=== PATIENT | male | born 1965 | race African-American/Black ===

== ENCOUNTER 2018-01-09 11:11 | Emergency (ER) | payer MEDICARE ==
[~2018-01-09] VITALS: Ht 165.1 cm; Wt 99.1 kg
[~2018-01-09 11:11] MED LIST: ABILIFY15 MG PO; BAYER CHEWABLE81 MG PO; CLARINEX5 MG PO; CLARITIN 10 MG10 MG PO; DESERYL100 MG PO; EFFIENT10 MG PO; NORCO 10/325 TA1 TA1 PO; PROAIR HFA8.5 GM INH; TOPROL XL25 MG PO; VALIUM5 MG PO; VISTARIL25 MG PO; ZOLOFT100 MG PO
[2018-01-09 11:33] VITALS: Ht 165.1 cm; Wt 99.1 kg
[2018-01-09] MEDS ORDERED: SEROQUEL100 MG PO (11:35)
[2018-01-09] MEDS ORDERED: VIBRAMYCIN 100100 MG PO (12:41)
[2018-01-09 12:59] VITALS: BP 112/55
== END 2018-01-09 13:03 | disposition home or self-care (01) ==
LOC: D.ER 11:11
DX: L03.213 Periorbital cellulitis (principal); F17.200 Nicotine dependence, unspecified, uncomplicated

== ENCOUNTER 2018-02-23 05:34 | Observation (INO) | payer MEDICARE ==
[~2018-02-23] VITALS: Ht 165.1 cm; Wt 96.5 kg
--- NOTE | ~2018-02-23 | DS ---
PATIENT:ROCIO LOZANO :63 MEDICAL RECORD: [id number] DISCHARGE SUMMARY ADMISSION DATE: 02/23/18 DISCHARGE DATE: DATE OF ADMISSION: 02/23/2018 DISCHARGE DATE: 02/24/2018 ADMISSION DIAGNOSES: Chest pain; depression, chronic. DISCHARGE DIAGNOSES: Chest pain, atypical; chronic depression. HOSPITAL COURSE: The patient had an uneventful hospital course, presented to the Emergency Room with atypical chest pain, has underlying cardiac history, had an extensive cardiac workup with [facility] 2 weeks ago. Cardiology was consulted. Pacemaker interrogated. Case reviewed, cleared for discharge by cardiology. The patient is ambulating independently. He is walking all over the hospital. He is anxious to go home. DISPOSITION: The patient is discharged home in significantly stable and improved condition. PHYSICAL EXAMINATION: VITAL SIGNS: On discharge, temperature 98.1, blood pressure is 148/75, heart rate 80, respirations 18, O2 sats 95% room air. GENERAL: Alert, oriented, no acute distress. HEART: Regular rate and rhythm. LUNGS: Clear. ABDOMEN: Soft, nontender. Bowel sounds positive. EXTREMITIES: Present times 4. NEUROLOGIC: Intact. The patient answers questions appropriately. DISCHARGE INSTRUCTIONS: The patient will follow up with Dr. Go next week. Will follow up with Chet Montana for his depression as scheduled. DISCHARGE MEDICATIONS: Per med rec. See chart for further details. TRANSINT:[id number] Voice Confirmation ID: [id number] DOCUMENT ID: [id number] MELITA CA DO at 1439 CC: [id number] DICTATION DATE: 02/24/18 1349 BURGLAR ALARM SUPERINTENDENT: 02/24/18 1403 ADM IN [place] [id number] [place] [id number]
--- NOTE | ~2018-02-23 | CN ---
PATIENT NAME:ROCIO MEDEROS MEDICAL RECORD: [id number] : 63 LOCATION:[facility].2124 ADMIT DATE: 02/23/18 ACCOUNT: [id number] CONSULTING PHYSICIAN: NIKOLAS CELIS MD REFERRING PHYSICIAN: LEONILA DAY DO DATE OF CONSULTATION: 02/24/2018 PSYCHIATRIC CONSULTATION HISTORY OF PRESENT ILLNESS: Mr. Mederos was consulted for depression. He is in the hospital because of chest pain. I went to his room to see him and there was no one in his room. I spoke with his nurse. He is not off the floor for any diagnostic procedure. The nurse said that he does walk around and offered to help me look for the patient once he finished doing what he was doing. I made one nenana around the nurses' station and did not see anyone who was a black male about 53 years old and so I left. I will return and try to see him again in the future, probably tomorrow. Please call if there is some kind of acute need that this patient requires from psychiatrist. TRANSINT:[id number] Voice Confirmation ID: [id number] DOCUMENT ID: [id number] NIKOLAS CELIS MD at 1045 CC: [id number] DICTATION DATE: 02/24/18 1312 SECURITY DELIVERY SPECIALIST: 02/24/18 1331 DIS IN 02/24/18 [place] [address] [place] [address]
[~2018-02-23 05:34] MED LIST changes: +SEROQUEL100 MG PO; +VIBRAMYCIN 100100 MG PO
[2018-02-23 06:32] LABS: ALBUMIN 3.1 g/dL (3.4-5.0); ALKALINE PHOSPHATASE 90 U/L (46-116); ALT (SGPT) 26 U/L (10-68); BILIRUBIN - TOTAL 0.25 mg/dL (0.2-1.3); CALC OSMOLALITY 276 mosm/kg (275-300); CALCIUM 8.6 mg/dL (8.5-10.1); CARBON DIOXIDE 26.1 mmol/L (21.0-32.0); CHLORIDE - SERUM 105 mmol/L (98-107); CREATININE - SERUM 1.2 mg/dL (0.6-1.3); GLUCOSE 130 mg/dL (74-106); POTASSIUM - SERUM 3.6 mmol/L (3.5-5.1); PROTEIN - SERUM 6.9 g/dL (6.4-8.2); SODIUM 138 mmol/L (136-145); UREA NITROGEN 9 mg/dL (7-18); eGFR NON AFRICAN AMERICAN 67 mL/min (90-120)
[2018-02-23 06:43] LABS: INR 0.99 (0.85-1.17); PROTIME 12.7 SECONDS (11.6-15.0)
[2018-02-23 06:45] LABS: D-DIMER-QUANTITATIVE 0.38 ug/mLFEU (0.20-0.54)
[2018-02-23 06:46] LABS: CKMB 1.9 U/L (0.0-3.6); CREATINE KINASE 310 UL (21-232)
[2018-02-23 06:47] LABS: TROPONIN-I < 0.017 ng/mL (0.000-0.060)
[2018-02-23 06:48] LABS: BASOPHILS 0.2 % (0-2); EOSINOPHILS 4.5 % (0-7); HEMOGLOBIN 14.9 g/dL (13.5-17.5); IMMATURE GRANULOCYTES 0.2 % (0-5); LYMPHOCYTES 28.5 % (15-50); MCH 30.3 pg (26.0-34.0); MCHC 34.7 g/dL (31.0-37.0); MCV 87.4 fL (80.0-100.0); MEAN PLATELET VOLUME 9.4 fL (7.4-10.4); MONOCYTES 7.5 % (2-11); NEUTROPHILS 59.1 % (40-80); PLATELET COUNT 287 10x3/uL (130-400); RBC 4.92 10x6/uL (4.20-6.10); RDW 14.3 % (11.5-14.5); WBC 8.5 10x3/uL (4.8-10.8)
[2018-02-23 07:00] VITALS: BP 113/66
[2018-02-23 07:15] VITALS: BP 116/67
[2018-02-23 08:08] VITALS: BP 104/59; BMI 35.5
[2018-02-23 08:13] VITALS: BP 104/59
[2018-02-23 14:10] LABS: CKMB 1.5 U/L (0.0-3.6); CREATINE KINASE 263 UL (21-232); TROPONIN-I < 0.017 ng/mL (0.000-0.060)
[2018-02-23 14:25] VITALS: Ht 165.1 cm; Wt 96.5 kg
[2018-02-23 19:14] LABS: CKMB 1.3 U/L (0.0-3.6); CREATINE KINASE 238 UL (21-232); TROPONIN-I < 0.017 ng/mL (0.000-0.060)
[2018-02-23 21:56] VITALS: BP 126/77
[2018-02-24 00:45] VITALS: BP 127/67
[2018-02-24 04:16] VITALS: BP 111/74
[2018-02-24 07:47] VITALS: BP 148/75
== END 2018-02-24 14:45 | disposition home or self-care (01) ==
LOC: D.ER 05:34 → D.M2 06:59 → D.EDHOLD 06:59 → OBSVTIME 06:59 → D.M2 07:10
PROVIDERS: Family Medicine
DX: R07.9 Chest pain, unspecified (principal); F32.9 Major depressive disorder, single episode, unspecified; Z95.0 Presence of cardiac pacemaker

== ENCOUNTER 2018-08-21 22:26 | Emergency (ER) | payer MEDICARE, MEDICAID ==
[~2018-08-21] VITALS: Ht 165.1 cm; Wt 91.8 kg
[2018-08-21 22:40] VITALS: Ht 165.1 cm; Wt 91.8 kg
[2018-08-21 23:19] LABS: BASOPHILS 0.1 % (0-2); EOSINOPHILS 2.5 % (0-7); HEMATOCRIT 42.6 % (42.0-54.0); HEMOGLOBIN 14.9 g/dL (13.5-17.5); IMMATURE GRANULOCYTES 0.3 % (0-5); LYMPHOCYTES 34.1 % (15-50); MCH 30.8 pg (26.0-34.0); MONOCYTES 9.2 % (2-11); NEUTROPHILS 53.8 % (40-80); PLATELET COUNT 274 10x3/uL (130-400); RBC 4.84 10x6/uL (4.20-6.10); RDW 14.4 % (11.5-14.5); WBC 7.9 10x3/uL (4.8-10.8)
[2018-08-21 23:36] LABS: ALBUMIN 2.7 g/dL (3.4-5.0); ALKALINE PHOSPHATASE 97 U/L (46-116); ALT (SGPT) 18 U/L (10-68); APTT 32.6 SECONDS (22.8-39.4); BILIRUBIN - TOTAL 0.27 mg/dL (0.2-1.3); CALC OSMOLALITY 283 mosm/kg (275-300); CALCIUM 8.6 mg/dL (8.5-10.1); CARBON DIOXIDE 24.6 mmol/L (21.0-32.0); CHLORIDE - SERUM 105 mmol/L (98-107); CREATININE - SERUM 1.1 mg/dL (0.6-1.3); GLUCOSE 90 mg/dL (74-106); INR 1.04 (0.85-1.17); POTASSIUM - SERUM 3.4 mmol/L (3.5-5.1); PROTIME 13.1 SECONDS (11.6-15.0); SODIUM 143 mmol/L (136-145); UREA NITROGEN 11 mg/dL (7-18); eGFR NON AFRICAN AMERICAN 74 mL/min (90-120)
[2018-08-21 23:37] LABS: D-DIMER-QUANTITATIVE 0.46 ug/mLFEU (0.20-0.54)
[2018-08-21 23:46] LABS: CKMB 0.9 U/L (0.0-3.6); CREATINE KINASE 110 UL (21-232)
[2018-08-21 23:52] LABS: TROPONIN-I < 0.017 ng/mL (0.000-0.060)
[2018-08-21 23:54] LABS: APPEARANCE CLEAR (CLEAR); BILIRUBIN NEGATIVE (NEGATIVE); COLOR YELLOW (YELLOW); GLUCOSE NEGATIVE (NEGATIVE); KETONE NEGATIVE (NEGATIVE); NITRITE NEGATIVE (NEGATIVE); PROTEIN NEGATIVE (NEGATIVE); UDS - AMPHET NEGATIVE QUAL (NEGATIVE); UDS - BARB NEGATIVE QUAL (NEGATIVE); UDS - BENZO POSITIVE QUAL (NEGATIVE); UDS - COCAINE POSITIVE QUAL (NEGATIVE); UDS - OPIATE NEGATIVE QUAL (NEGATIVE); UDS - PCP NEGATIVE QUAL (NEGATIVE); UDS - THC NEGATIVE QUAL (NEGATIVE); UROBILINOGEN NORMAL (NORMAL)
[2018-08-21 23:55] LABS: BACTERIA FEW /hpf (NONE SEEN); EPITHELIAL CELLS 0-5 /hpf (0-5); RED CELLS - URINE 0-5 /hpf (0-5); WHITE CELLS - URINE 0-5 /hpf (0-5)
[2018-08-22 02:20] LABS: CKMB 1.2 U/L (0.0-3.6); CREATINE KINASE 143 UL (21-232); TROPONIN-I < 0.017 ng/mL (0.000-0.060)
[2018-08-22 03:07] VITALS: BP 136/112
== END 2018-08-22 03:07 | disposition home or self-care (01) ==
LOC: D.ER 22:26
PROVIDERS: Family Medicine
DX: R07.9 Chest pain, unspecified (principal); F41.9 Anxiety disorder, unspecified; F19.10 Other psychoactive substance abuse, uncomplicated

== ENCOUNTER 2018-09-06 11:30 | Emergency (ER) | payer MEDICARE, MEDICAID ==
[~2018-09-06] VITALS: Ht 165.1 cm; Wt 86.4 kg
[2018-09-06 12:33] VITALS: Ht 165.1 cm; Wt 86.4 kg
[2018-09-06] MEDS ORDERED: KEFLEX500 MG PO (17:14)
[2018-09-06] MEDS ORDERED: TALWIN NX1 TAB PO (17:14)
[2018-09-06 17:42] VITALS: BP 125/78
== END 2018-09-06 17:43 | disposition home or self-care (01) ==
LOC: D.ER 11:30
DX: S61.411A Laceration without foreign body of right hand, initial encounter (principal); W25.XXXA Contact with sharp glass, initial encounter; Y93.89 Activity, other specified; Y92.019 Unspecified place in single-family (private) house as the place of occurrence of the external cause

== ENCOUNTER 2018-09-14 11:32 | Emergency (ER) | payer MEDICARE, MEDICAID ==
[~2018-09-14] VITALS: Ht 165.1 cm; Wt 90.0 kg
[~2018-09-14 11:32] MED LIST changes: +KEFLEX500 MG PO; +TALWIN NX1 TAB PO
[2018-09-14 12:09] VITALS: Ht 165.1 cm; Wt 90.0 kg
[2018-09-14 17:55] VITALS: BP 115/82
== END 2018-09-14 17:55 | disposition home or self-care (01) ==
LOC: D.ER 11:32
DX: S61.411D Laceration without foreign body of right hand, subsequent encounter (principal); X58.XXXD Exposure to other specified factors, subsequent encounter; Z48.02 Encounter for removal of sutures

== ENCOUNTER 2018-09-15 17:39 | Emergency (ER) | payer MEDICARE, MEDICAID ==
[~2018-09-15] VITALS: Ht 165.1 cm; Wt 88.7 kg
[2018-09-15 18:09] VITALS: BP 115/68; Ht 165.1 cm; Wt 88.7 kg
== END 2018-09-15 19:08 | disposition home or self-care (01) ==
LOC: D.ER 17:39
DX: S61.411D Laceration without foreign body of right hand, subsequent encounter (principal); X58.XXXD Exposure to other specified factors, subsequent encounter; Z48.02 Encounter for removal of sutures

== ENCOUNTER 2018-09-23 17:41 | Emergency (ER) | payer MEDICARE, MEDICAID ==
[~2018-09-23] VITALS: Ht 165.1 cm; Wt 85.5 kg
[~2018-09-23 17:41] MED LIST changes: -AMOXICILLIN500 M1 PO
[2018-09-23 17:44] VITALS: Ht 165.1 cm; Wt 85.5 kg
[2018-09-23] MEDS ORDERED: AMOXICILLIN500 M1 PO (18:21)
[2018-09-23 18:56] VITALS: BP 122/62
== END 2018-09-23 18:57 | disposition home or self-care (01) ==
LOC: D.ER 17:41
DX: L03.011 Cellulitis of right finger (principal)

== ENCOUNTER → 2018-09-23 | Emergency (ER) | payer MEDICARE, MEDICAID ==
[~2018-09-23] MED LIST changes: +AMOXICILLIN500 M1 PO
[2018-09-23 17:44] VITALS: BMI 31.3
== END | disposition home or self-care (01) ==
LOC: D.ER 19:02
DX: L03.113 Cellulitis of right upper limb (principal)

== ENCOUNTER 2018-10-13 12:31 | Emergency (ER) | payer MEDICARE, MEDICAID ==
[~2018-10-13] VITALS: Ht 165.1 cm; Wt 81.8 kg
[~2018-10-13 12:31] MED LIST changes: +AMOXICILLIN500 M1 PO
[2018-10-13 12:37] VITALS: Ht 165.1 cm; Wt 81.8 kg
[2018-10-13 13:05] LABS: BASOPHILS 0.1 % (0-2); EOSINOPHILS 0.2 % (0-7); HEMATOCRIT 47.3 % (42.0-54.0); IMMATURE GRANULOCYTES 0.4 % (0-5); LYMPHOCYTES 7.7 % (15-50); MCH 32.9 pg (26.0-34.0); MCHC 35.9 g/dL (31.0-37.0); MCV 91.7 fL (80.0-100.0); MEAN PLATELET VOLUME 9.4 fL (7.4-10.4); MONOCYTES 7.5 % (2-11); NEUTROPHILS 84.1 % (40-80); PLATELET COUNT 239 10x3/uL (130-400); RBC 5.16 10x6/uL (4.20-6.10); RDW 16.1 % (11.5-14.5)
[2018-10-13] MEDS ORDERED: TRAZODONE HCL150 MG PO (13:14)
[2018-10-13] MEDS ORDERED: HALDOL5 MG PO (13:14)
[2018-10-13 13:17] LABS: APPEARANCE CLEAR (CLEAR); COLOR STRAW (YELLOW); GLUCOSE NEGATIVE (NEGATIVE); KETONE LARGE mg/dL (NEGATIVE); NITRITE NEGATIVE (NEGATIVE); PROTEIN NEGATIVE (NEGATIVE)
[2018-10-13 13:18] LABS: BILIRUBIN NEGATIVE (NEGATIVE); EPITHELIAL CELLS 0-5 /hpf (0-5); RED CELLS - URINE 0-5 /hpf (0-5); UROBILINOGEN NORMAL (NORMAL); WHITE CELLS - URINE 0-5 /hpf (0-5)
[2018-10-13 13:19] LABS: ALBUMIN 3.3 g/dL (3.4-5.0); BILIRUBIN - TOTAL 0.83 mg/dL (0.2-1.3); CALCIUM 9.1 mg/dL (8.5-10.1); CARBON DIOXIDE 25.8 mmol/L (21.0-32.0); CREATININE - SERUM 1.1 mg/dL (0.6-1.3); POTASSIUM - SERUM 3.8 mmol/L (3.5-5.1); PROTEIN - SERUM 7.7 g/dL (6.4-8.2)
[2018-10-13 13:21] LABS: MAGNESIUM - SERUM 2.1 mg/dL (1.8-2.4)
[2018-10-13 13:32] LABS: UDS - AMPHET NEGATIVE QUAL (NEGATIVE); UDS - BARB NEGATIVE QUAL (NEGATIVE); UDS - BENZO NEGATIVE QUAL (NEGATIVE); UDS - COCAINE POSITIVE QUAL (NEGATIVE); UDS - OPIATE NEGATIVE QUAL (NEGATIVE); UDS - PCP NEGATIVE QUAL (NEGATIVE); UDS - THC NEGATIVE QUAL (NEGATIVE)
[2018-10-13 17:52] VITALS: BP 128/72
== END 2018-10-13 18:46 ==
LOC: D.ER 12:31
PROVIDERS: Family Medicine
DX: R45.850 Homicidal ideations (principal)

== ENCOUNTER 2018-10-18 14:21 | Emergency (ER) | payer MEDICARE, MEDICAID ==
[~2018-10-18] VITALS: Ht 165.1 cm; Wt 81.8 kg
[~2018-10-18 14:21] MED LIST changes: +HALDOL5 MG PO; +TRAZODONE HCL150 MG PO
[2018-10-18 14:50] VITALS: Ht 165.1 cm; Wt 81.8 kg
[2018-10-18 15:47] LABS: BASOPHILS 0.2 % (0-2); EOSINOPHILS 0.8 % (0-7); HEMATOCRIT 44.1 % (42.0-54.0); HEMOGLOBIN 15.7 g/dL (13.5-17.5); IMMATURE GRANULOCYTES 0.4 % (0-5); MCH 32.4 pg (26.0-34.0); MCHC 35.6 g/dL (31.0-37.0); MCV 90.9 fL (80.0-100.0); MEAN PLATELET VOLUME 9.6 fL (7.4-10.4); NEUTROPHILS 77.6 % (40-80); RBC 4.85 10x6/uL (4.20-6.10); RDW 15.4 % (11.5-14.5); WBC 16.4 10x3/uL (4.8-10.8)
[2018-10-18 15:52] LABS: PLATELET COUNT 322 10x3/uL (130-400)
[2018-10-18 16:03] LABS: INR 1.12 (0.85-1.17); PROTIME 13.9 SECONDS (11.6-15.0)
[2018-10-18 16:04] LABS: ALBUMIN 2.6 g/dL (3.4-5.0); ALKALINE PHOSPHATASE 82 U/L (46-116); ALT (SGPT) 23 U/L (10-68); BILIRUBIN - TOTAL 0.69 mg/dL (0.2-1.3); CALC OSMOLALITY 271 mosm/kg (275-300); CALCIUM 9.4 mg/dL (8.5-10.1); CARBON DIOXIDE 24.5 mmol/L (21.0-32.0); CHLORIDE - SERUM 100 mmol/L (98-107); CREATININE - SERUM 0.9 mg/dL (0.6-1.3); GLUCOSE 109 mg/dL (74-106); POTASSIUM - SERUM 4.1 mmol/L (3.5-5.1); PROTEIN - SERUM 8.2 g/dL (6.4-8.2); SODIUM 136 mmol/L (136-145); UREA NITROGEN 10 mg/dL (7-18); eGFR NON AFRICAN AMERICAN > 90 mL/min (90-120)
[2018-10-18 16:15] LABS: CKMB 0.5 U/L (0.0-3.6); CREATINE KINASE 67 UL (21-232); MAGNESIUM - SERUM 2.3 mg/dL (1.8-2.4)
[2018-10-18 16:18] LABS: TROPONIN-I < 0.017 ng/mL (0.000-0.060)
[2018-10-18] MEDS ORDERED: VIBRAMYCIN 100100 MG PO (16:49)
[2018-10-18] MEDS ORDERED: ALBUTEROL SULF8.5 GM INH (16:49)
[2018-10-18 17:24] VITALS: BP 145/91
[2018-10-20 13:50] VITALS: Ht 165.1 cm; Wt 81.8 kg
== END 2018-10-18 17:24 | disposition home or self-care (01) ==
LOC: D.ER
PROVIDERS: Emergency Medicine
DX: J40 Bronchitis, not specified as acute or chronic (principal); R07.81 Pleurodynia; I10 Essential (primary) hypertension; F17.200 Nicotine dependence, unspecified, uncomplicated

== ENCOUNTER 2018-10-19 00:42 | Inpatient (IN) | payer MEDICARE, MEDICAID ==
[~2018-10-19] VITALS: Ht 165.1 cm; Wt 77.1 kg
[~2018-10-19 00:42] MED LIST changes: +ALBUTEROL SULF8.5 GM INH
[2018-10-19 02:48] LABS: BASOPHILS 0.2 % (0-2); EOSINOPHILS 1.5 % (0-7); HEMATOCRIT 43.3 % (42.0-54.0); HEMOGLOBIN 15.1 g/dL (13.5-17.5); IMMATURE GRANULOCYTES 0.4 % (0-5); MCH 31.7 pg (26.0-34.0); MCHC 34.9 g/dL (31.0-37.0); MCV 90.8 fL (80.0-100.0); MEAN PLATELET VOLUME 9.3 fL (7.4-10.4); MONOCYTES 12.8 % (2-11); NEUTROPHILS 72.1 % (40-80); PLATELET COUNT 314 10x3/uL (130-400); RBC 4.77 10x6/uL (4.20-6.10); WBC 15.9 10x3/uL (4.8-10.8)
[2018-10-19 03:08] LABS: CALC OSMOLALITY 275 mosm/kg (275-300); CARBON DIOXIDE 25.4 mmol/L (21.0-32.0); CHLORIDE - SERUM 102 mmol/L (98-107); GLUCOSE 114 mg/dL (74-106); POTASSIUM - SERUM 4.1 mmol/L (3.5-5.1); SODIUM 138 mmol/L (136-145); UREA NITROGEN 11 mg/dL (7-18); eGFR NON AFRICAN AMERICAN 83 mL/min (90-120)
[2018-10-19 05:30] VITALS: BP 147/78
--- NOTE | 2018-10-19 07:30 | NUR ---
REPORT RECEIVED. WILL CONTINUE WITH POC. PT CURRENTLY LYING SEMI FOWLERS. CALL LIGHT W/I REACH. PT IS AAO AND UP AD REA. RR EVEN AND UNLABORED ON RA. L.WRIST PIV IS SALINE LOCKED. PT DENIES ANY NEEDS AT THIS TIME. WILL CTM. NO S/S OF DISTRESS NOTED.
[2018-10-19 07:58] VITALS: BP 147/78; BMI 28.3
[2018-10-19 09:10] VITALS: BP 111/78
[2018-10-19 13:24] VITALS: BP 157/84
--- NOTE | 2018-10-19 17:58 | NUR ---
I have reviewed this patient and I concur with the Shift Assessment completed by the Licensed Practical Nurse today this shift.
--- NOTE | 2018-10-19 19:25 | NUR ---
RECEIVED REPORT, WILL ASSUME CARE OF PT, PT IS SLEEPING, BED IS LOW, SRX2, CALL LIGHT IN REACH, WILL CONTINUE PLAN OF CARE
[2018-10-19 20:00] VITALS: BP 109/76
--- NOTE | 2018-10-19 20:37 | NUR ---
WENT TO GIVE PM MEDS, PT IS OUT OF ROOM
--- NOTE | 2018-10-19 20:50 | NUR ---
PT BACK IN ROOM, WAS WALKING IN [place]
[2018-10-20] VITALS: BP 112/73
[2018-10-20 05:53] LABS: BASOPHILS 0.1 % (0-2); EOSINOPHILS 0 % (0-7); HEMATOCRIT 41.9 % (42.0-54.0); HEMOGLOBIN 14.5 g/dL (13.5-17.5); IMMATURE GRANULOCYTES 0.3 % (0-5); LYMPHOCYTES 7.5 % (15-50); MCH 31.6 pg (26.0-34.0); MCHC 34.6 g/dL (31.0-37.0); MCV 91.3 fL (80.0-100.0); MONOCYTES 4.8 % (2-11); NEUTROPHILS 87.3 % (40-80); RBC 4.59 10x6/uL (4.20-6.10); RDW 15.5 % (11.5-14.5); WBC 14.9 10x3/uL (4.8-10.8)
[2018-10-20 05:55] LABS: PLATELET COUNT 386 10x3/uL (130-400)
[2018-10-20 06:04] LABS: ALBUMIN 2.3 g/dL (3.4-5.0); ALKALINE PHOSPHATASE 80 U/L (46-116); ALT (SGPT) 20 U/L (10-68); BILIRUBIN - TOTAL 0.24 mg/dL (0.2-1.3); CALC OSMOLALITY 280 mosm/kg (275-300); CALCIUM 9.3 mg/dL (8.5-10.1); CARBON DIOXIDE 24.4 mmol/L (21.0-32.0); CHLORIDE - SERUM 102 mmol/L (98-107); GLUCOSE 145 mg/dL (74-106); POTASSIUM - SERUM 3.9 mmol/L (3.5-5.1); PROTEIN - SERUM 7.9 g/dL (6.4-8.2); SODIUM 139 mmol/L (136-145); UREA NITROGEN 13 mg/dL (7-18); eGFR NON AFRICAN AMERICAN 83 mL/min (90-120)
[2018-10-20 06:22] VITALS: BP 116/70
--- NOTE | 2018-10-20 07:00 | NUR ---
RECEIVED REPORT. ASSUMED CARE OF PATIENT. NO DISTRESS. IV INFUSING AT KVO. CALL LIGHT WITHIN REACH.
[2018-10-20 09:08] VITALS: BP 109/81
--- NOTE | 2018-10-20 10:48 | NUR ---
MARYAN SCHNEIDER MADE AWARE THAT IS AWARE OF CONSULT AND CAN NOT SEE THE PATIENT AND STATES THE PATIENT NEEDS TO BE SEEN BY AN ENT.
[2018-10-20 11:31] VITALS: BP 131/74
[2018-10-20 13:50] VITALS: Ht 165.1 cm; Wt 77.1 kg
--- NOTE | 2018-10-20 14:02 | NUR ---
RECIEVED CALL FROM CHAD FROM [facility]. THEY HAVE ACCEPTED PATIENT SINCE WE DO NOT HAVE ENT SERVICE. RECEIVED PAPERWORK FROM CHAD AND TOOK IT TO JENNIE FOR TO SIGN.
--- NOTE | 2018-10-20 15:19 | NUR ---
RECEIVED CALL FROM [facility], SPOKE WITH ISMA, SHE STATES THAT PATIENT CANNOT BE TRANSFERRED UNTIL HE HAS A PSYCH SCREENING TO MAKE SURE THAT HE IS SAFE TO BE AT [facility]. ISMA ALSO IS REQUESTING THE RADIOLOGY SEND THE REPORT THROUGH THE [employer] SO THE PHYSICIAN CAN REVIEW THE TONSILAR ABSCESS WHILE WAITING ON THE PSYCH SCREENING. MARYAN SCHNEIDER CALLED AND MAKE AWARE OF ISSUES WITH TRANSFERRING TO [facility] NOW.
--- NOTE | 2018-10-20 18:14 | NUR ---
AMBULATING IN ROOM. NO DISTRESS. PATIENT OFF AND ON UNIT MOST ALL OF THIS SHIFT. AWAITING PSYCH SCREENING FOR TRANSFER TO [facility]. WILL BE THE RECEIVING ENT. PER CHAD AT [facility], SAID THE IMAGING WAS POOR SO THEY WILL WAIT AND EVALUATE PATIENT WHEN HE GETS THERE.
[2018-10-20 20:00] VITALS: BP 129/88
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
--- NOTE | 2018-10-20 22:00 | NUR ---
WENT TO GIVE PM MEDS, PT IS OFF THE FLOOR
[2018-10-21] VITALS: BP 130/79
--- NOTE | 2018-10-21 03:01 | NUR ---
I have reviewed this patient and I concur with the Shift Assessment completed by the Licensed Practical Nurse today this shift.
[2018-10-21 05:01] LABS: BASOPHILS 0 % (0-2); EOSINOPHILS 0 % (0-7); IMMATURE GRANULOCYTES 0.3 % (0-5); LYMPHOCYTES 10.9 % (15-50); MCH 32.3 pg (26.0-34.0); MCV 92.2 fL (80.0-100.0); MEAN PLATELET VOLUME 9.6 fL (7.4-10.4); MONOCYTES 6.4 % (2-11); NEUTROPHILS 82.4 % (40-80); PLATELET COUNT 397 10x3/uL (130-400); RBC 4.34 10x6/uL (4.20-6.10); RDW 15.4 % (11.5-14.5); WBC 14.6 10x3/uL (4.8-10.8)
[2018-10-21 05:12] LABS: ALBUMIN 2.2 g/dL (3.4-5.0); ALKALINE PHOSPHATASE 69 U/L (46-116); ALT (SGPT) 28 U/L (10-68); BILIRUBIN - TOTAL 0.16 mg/dL (0.2-1.3); CALC OSMOLALITY 284 mosm/kg (275-300); CARBON DIOXIDE 27.3 mmol/L (21.0-32.0); CHLORIDE - SERUM 105 mmol/L (98-107); CREATININE - SERUM 0.9 mg/dL (0.6-1.3); GLUCOSE 128 mg/dL (74-106); POTASSIUM - SERUM 4.4 mmol/L (3.5-5.1); PROTEIN - SERUM 7.2 g/dL (6.4-8.2); SODIUM 141 mmol/L (136-145); UREA NITROGEN 17 mg/dL (7-18); eGFR NON AFRICAN AMERICAN > 90 mL/min (90-120)
--- NOTE | 2018-10-21 07:42 | NUR ---
ROUNDING DONE WITH PATIENT UP IN ROOM WITH HIS IV DISCONNECTED AND INFUSING TO BED NEAR HIS CELL PHONE. PATIENT STATES HE FORGOT TO "TURN IT OFF". ON EP, K+ 4.4. WILL TRY AND MONITOR PATIENT HE IS NOT IN THE ROOM MOST OF THE ITIEM.
--- NOTE | 2018-10-21 08:13 | NUR ---
PATIENT IS OUT OF ROOM AGAIN.
[2018-10-21 08:32] VITALS: BP 138/72
--- NOTE | 2018-10-21 11:43 | NUR ---
PATIENT TO ASK IF HE CAN HAVE A SANDWICH, I TOLD HIM HE IS ON CLEAR LIQUIDS. HE STATES THAT HE IS GOING DOWNSTAIRS. I TOLD HIM TO STAY ON CLEAR LIQUIDS.
--- NOTE | 2018-10-21 12:00 | NUR ---
LEO WITH [facility] TO CALL AND INQUIRE ON PATIENT. I TOLD HER THAT DR VERGARA WAS IN THE ROOM TO SEE THE PATIENT BUT I HAVE NO NOTES YET. SHE ASKED THAT I CALL HER WHEN I FIND OUT.
--- NOTE | 2018-10-21 14:32 | NUR ---
STILL NO NOTED FROM [facility] DOCTOR SO I AM UNABLE TO CALL LEO AT [facility]. WILL CONTINUE TO LOOK FOR THEM.
--- NOTE | 2018-10-21 14:37 | NUR ---
I CALLED AND SPOKE WITH JENNIE KIM APN TO SEE ABOUT INCREASING HIS DIET. NEW ORDERS.
--- NOTE | 2018-10-21 14:42 | NUR ---
I TOOK A VANILLA AND CHOCOLATE PUDDING INTO PATIENT AND EXPLAINED THAT HE STILL COULD NOT HAVE A SANDWICH BUT I CAN GIVE HIM PUDDINGS AND SHERBERT NOW. HE STATES THAT HE HAS BEEN EATING THAT FOR THE PAST SEVERAL DAYS. I TRIED TO EXPLAIN TO THE PATIENT THAT HE HAS BEEN ON CLEAR LIQUIDS AND HE IS STARTING TO GET AGGITATED ABOUT IT. AGAIN HE TELLS ME THAT HE HAS BEEN ON A FULL LIQUID DIET, HE HAS BEEN ON CLEAR. HE STATES THAT HE IS "GOING TO MAKE SOME PHONE CALLS" AND GET A BETTER DIET AND GET SOME ANSWERS. I LEFT THE ROOM.
--- NOTE | 2018-10-21 15:08 | NUR ---
MARISABEL, AD TAKER TO CALL AND LET ME KNOW THAT PATIENT CALLED HER. I TOLD HER THAT PATIENT STATED HE WOULD CALL HER EVEN THOUGH I ASKED HIM IF I COULD HAVE HER COME UP.
--- NOTE | 2018-10-21 15:34 | NUR ---
LION TO CALL FROM TRANSFER CENTER, I TOLD HIM THAT I STILL HAD NO NOTED FROM [facility] DOCTOR.
--- NOTE | 2018-10-21 16:35 | NUR ---
DR WAKEFIELD HERE TO MAKE ROUNDS. NEW ORDERS RECEIVED FOR DIET.
--- NOTE | 2018-10-21 18:34 | NUR ---
LION FROM TRANSFER CENTER TO CALL AND INQUIRE ON PATIENT. THE NOTE FROM [facility] DOCTOR JUST CAME IN AND READ TO HIM. LION ASKED THAT WE FAX HIM THIS AND HE WILL LET [facility] KNOW OF THIS. AWAITING TO HEAR FINAL FOR DISCHARGE TO [facility] PER AMBULANCE.
--- NOTE | 2018-10-21 18:52 | NUR ---
PT REFUSED SMOKING QUITLINE.
--- NOTE | 2018-10-21 19:21 | NUR ---
RECEIVED REPORT, WILL ASSUME CARE OF PT, TALKING ON PHONE, DENIES ANY NEEDS AT THIS TIME, BED IS LOW, SRX1, CALL LIGHT IN REACH, WILL CONTINUE PLAN OF CARE
--- NOTE | 2018-10-21 19:56 | NUR ---
[facility] CALLED THEY HAVE A BED F925, CALL REPORT, TO CASEY FLORES
--- NOTE | 2018-10-21 20:13 | NUR ---
CALL [employer], WAS TOLD IT WILL BE ABOUT AN HOUR
[2018-10-21 20:26] VITALS: BP 141/75
--- NOTE | 2018-10-21 21:37 | NUR ---
PT TRANFER TO [facility] VIA [employer]
--- NOTE | 2018-10-22 09:02 | MORECARE ---
CASE MANAGEMENT DISCHARGE SUMMARY PATIENT: ROCIO LOZANO UNIT: [id number] ADM DATE: 10/19/18 AGE: 53 : 63 SEX: M ROOM/BED: D.2131 AUTHOR: EDY FIGUEROA PHYSICIAN: REFERRING PHYSICIAN: YOLA WAKEFIELD MD DATE OF SERVICE: 10/22/18 Discharge Plan Patient Name: ROCIO LOZANO [facility] [facility] 1965 Planned Disposition: Acute Care Hospital Anticipated Discharge Date: 10/21/18 Discharge Date: 10/21/2018 Expected LOS: 2 Initial Reviewer: [email or web address] Initial Review Date: 10/22/2018 Generated: 10/22/18 10:02 am Patient Name: ROCIO LOZANO Page [id number] at 0902 All edits/amendments must be made on the electronic document DICTATION DATE: 10/22/18900 INFORMATION TECHNOLOGY MANAGER: ISRAEL 10/22/18900 RPT#: [id number] DC DATE:10/21/18 STATUS: DIS IN [facility] [address] [place] [address] END OF REPORT
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
== END 2018-10-21 21:38 | disposition short-term general hospital (02) | DRG 153 ==
LOC: D.ER 00:42 → D.M2 04:43
PROVIDERS: Emergency Medicine; ADMIT Internal Medicine Nephrology; ATTEND Internal Medicine Nephrology
DX: J36 Peritonsillar abscess (principal); F31.30 Bipolar disorder, current episode depressed, mild or moderate severity, unspecified; F17.213 Nicotine dependence, cigarettes, with withdrawal; R59.0 Localized enlarged lymph nodes; I10 Essential (primary) hypertension; F20.9 Schizophrenia, unspecified; F43.10 Post-traumatic stress disorder, unspecified

== ENCOUNTER 2018-10-28 13:52 | Emergency (ER) | payer MEDICARE, MEDICAID ==
[2018-10-28 13:56] VITALS: BMI 28.3
[2018-10-28 15:18] VITALS: BP 124/81
[2018-11-01] MEDS ORDERED: SULFAMETHOXAZOL1 TA3 PO (23:30)
[2018-11-13] MEDS ORDERED: ZOLOFT50 MG PO (23:03)
[2018-11-13] MEDS ORDERED: HYDROCODON-ACE1 EA10 PO (23:03)
[2018-11-15] MEDS ORDERED: EFFIENT10 MG PO (12:32)
== END 2018-10-28 15:17 | disposition home or self-care (01) ==
LOC: D.ER 13:52
DX: S10.91XA Abrasion of unspecified part of neck, initial encounter (principal); X58.XXXA Exposure to other specified factors, initial encounter; Y93.89 Activity, other specified; Y92.019 Unspecified place in single-family (private) house as the place of occurrence of the external cause

== ENCOUNTER → 2018-11-01 | Emergency (ER) | payer MEDICARE, MEDICAID ==
[~2018-11-01] VITALS: Ht 165.1 cm; Wt 80.9 kg
[~2018-11-01] MED LIST changes: +SULFAMETHOXAZOL1 TA3 PO
[2018-11-01 17:16] VITALS: BP 126/67; Ht 165.1 cm; Wt 80.9 kg
[2018-11-01 17:43] LABS: BASOPHILS 0.3 % (0-2); EOSINOPHILS 1.7 % (0-7); HEMATOCRIT 44.8 % (42.0-54.0); HEMOGLOBIN 15.3 g/dL (13.5-17.5); IMMATURE GRANULOCYTES 0.5 % (0-5); LYMPHOCYTES 17.4 % (15-50); MCH 31.5 pg (26.0-34.0); MCHC 34.2 g/dL (31.0-37.0); MCV 92.4 fL (80.0-100.0); MEAN PLATELET VOLUME 9.5 fL (7.4-10.4); MONOCYTES 3.5 % (2-11); NEUTROPHILS 76.6 % (40-80); PLATELET COUNT 369 10x3/uL (130-400); RBC 4.85 10x6/uL (4.20-6.10); RDW 15.8 % (11.5-14.5); WBC 11.9 10x3/uL (4.8-10.8)
[2018-11-01 17:57] LABS: ALBUMIN 2.9 g/dL (3.4-5.0); ANION GAP 13.2 mmol/L (8-16); BILIRUBIN - TOTAL 0.2 mg/dL (0.2-1.3); CALCIUM 8.6 mg/dL (8.5-10.1); CARBON DIOXIDE 23.6 mmol/L (21.0-32.0); CREATININE - SERUM 1.1 mg/dL (0.6-1.3); MAGNESIUM - SERUM 1.9 mg/dL (1.8-2.4); POTASSIUM - SERUM 3.8 mmol/L (3.5-5.1)
[2018-11-01 18:25] LABS: APPEARANCE CLEAR (CLEAR); COLOR YELLOW (YELLOW)
[2018-11-01 18:26] LABS: BILIRUBIN NEGATIVE (NEGATIVE); GLUCOSE NEGATIVE (NEGATIVE); KETONE NEGATIVE (NEGATIVE); NITRITE NEGATIVE (NEGATIVE); PROTEIN NEGATIVE (NEGATIVE); SPECIFIC GRAVITY 1.025 (1.005-1.020); UROBILINOGEN NORMAL (NORMAL)
[2018-11-01 18:27] LABS: BACTERIA FEW /hpf (NONE SEEN); EPITHELIAL CELLS 0-5 /hpf (0-5); RED CELLS - URINE 0-5 /hpf (0-5); WHITE CELLS - URINE 0-5 /hpf (0-5)
[2018-11-01 18:31] LABS: UDS - AMPHET NEGATIVE QUAL (NEGATIVE); UDS - BARB NEGATIVE QUAL (NEGATIVE); UDS - BENZO NEGATIVE QUAL (NEGATIVE); UDS - COCAINE POSITIVE QUAL (NEGATIVE); UDS - OPIATE NEGATIVE QUAL (NEGATIVE); UDS - PCP NEGATIVE QUAL (NEGATIVE); UDS - THC NEGATIVE QUAL (NEGATIVE)
== END | disposition home or self-care (01) ==
LOC: D.ER 16:51
PROVIDERS: Family Medicine
DX: F32.9 Major depressive disorder, single episode, unspecified (principal); R45.851 Suicidal ideations; N39.0 Urinary tract infection, site not specified

== ENCOUNTER 2018-11-17 16:03 | Emergency (ER) | payer MEDICARE, MEDICAID ==
[~2018-11-17 16:03] MED LIST changes: +HYDROCODON-ACE1 EA10 PO; +ZOLOFT50 MG PO
[2018-11-17 16:13] VITALS: BP 119/65; BMI 30.8
[2018-11-17] MEDS ORDERED: IBUPROFEN800 MG PO (17:06)
[2018-11-17] MEDS ORDERED: ZANAFLEX2 M1 PO (17:07)
== END 2018-12-09 18:56 | disposition home or self-care (01) ==
LOC: D.ER 16:03
DX: S60.222A Contusion of left hand, initial encounter (principal); V29.9XXA Motorcycle rider (driver) (passenger) injured in unspecified traffic accident, initial encounter; Y92.410 Unspecified street and highway as the place of occurrence of the external cause; M62.838 Other muscle spasm; S00.03XA Contusion of scalp, initial encounter

== ENCOUNTER 2018-12-14 22:59 | Emergency (ER) | payer MEDICARE, MEDICAID ==
[~2018-12-14 22:59] MED LIST changes: +IBUPROFEN800 MG PO; +ZANAFLEX2 M1 PO
[2018-12-14 23:03] VITALS: BMI 27.5
[2018-12-14 23:28] LABS: UDS - AMPHET NEGATIVE QUAL (NEGATIVE); UDS - BARB NEGATIVE QUAL (NEGATIVE); UDS - BENZO NEGATIVE QUAL (NEGATIVE); UDS - COCAINE NEGATIVE QUAL (NEGATIVE); UDS - OPIATE NEGATIVE QUAL (NEGATIVE); UDS - PCP NEGATIVE QUAL (NEGATIVE); UDS - THC POSITIVE QUAL (NEGATIVE)
[2018-12-14 23:29] LABS: APPEARANCE CLEAR (CLEAR); BILIRUBIN NEGATIVE (NEGATIVE); COLOR YELLOW (YELLOW); GLUCOSE NEGATIVE (NEGATIVE); KETONE NEGATIVE (NEGATIVE); NITRITE NEGATIVE (NEGATIVE); PROTEIN NEGATIVE (NEGATIVE); SPECIFIC GRAVITY 1.015 (1.005-1.020); UROBILINOGEN NORMAL (NORMAL)
[2018-12-14 23:41] LABS: BASOPHILS 0.1 % (0-2); EOSINOPHILS 1.9 % (0-7); HEMOGLOBIN 14.9 g/dL (13.5-17.5); IMMATURE GRANULOCYTES 0.3 % (0-5); LYMPHOCYTES 27.3 % (15-50); MCH 31.4 pg (26.0-34.0); MCHC 35.5 g/dL (31.0-37.0); MCV 88.6 fL (80.0-100.0); MEAN PLATELET VOLUME 9.3 fL (7.4-10.4); MONOCYTES 9.8 % (2-11); NEUTROPHILS 60.6 % (40-80); PLATELET COUNT 251 10x3/uL (130-400); RBC 4.74 10x6/uL (4.20-6.10); RDW 14.9 % (11.5-14.5); WBC 7.8 10x3/uL (4.8-10.8)
[2018-12-14 23:42] LABS: ALBUMIN 3.4 g/dL (3.4-5.0); ANION GAP 13.2 mmol/L (8-16); BILIRUBIN - TOTAL 0.32 mg/dL (0.2-1.3); CALCIUM 8.9 mg/dL (8.5-10.1); CARBON DIOXIDE 24.3 mmol/L (21.0-32.0); CREATININE - SERUM 1.1 mg/dL (0.6-1.3); MAGNESIUM - SERUM 2.1 mg/dL (1.8-2.4); POTASSIUM - SERUM 3.5 mmol/L (3.5-5.1); PROTEIN - SERUM 7.2 g/dL (6.4-8.2)
--- NOTE | 2018-12-14 23:59 | NUR ---
DR CELIS NOTIFIED AND 1:1 SITTER OBSERVATION ORDERED. SITTER AT BEDSIDE, NOTIFIED CHARGE NURSE AND ATTENDING IN REGARDS TO ASSESSMENT FINDINGS. RESOURCES GIVEN TO PT AND SAFETY PLAN INITIATED.
[2018-12-15 06:00] VITALS: BP 110/68
== END 2018-12-15 04:29 ==
LOC: D.ER 22:59
PROVIDERS: Emergency Medicine
DX: F32.9 Major depressive disorder, single episode, unspecified (principal); R45.851 Suicidal ideations; F43.20 Adjustment disorder, unspecified; Z91.14 Patient's other noncompliance with medication regimen; F20.0 Paranoid schizophrenia

== ENCOUNTER 2018-12-25 14:49 | Emergency (ER) | payer MEDICARE, MEDICAID ==
[~2018-12-25] VITALS: Ht 165.1 cm; Wt 81.8 kg
[2018-12-25 15:04] VITALS: Ht 165.1 cm; Wt 81.8 kg
[2018-12-25] MEDS ORDERED: KEFLEX500 MG PO (15:17)
[2018-12-25] MEDS ORDERED: SULFAMETHOXAZOL1 TA3 PO (15:17)
[2018-12-25] MEDS ORDERED: CLEOCIN HCL300 MG PO (16:17)
[2018-12-25 16:32] VITALS: BP 131/78
== END 2018-12-25 16:20 | disposition home or self-care (01) ==
LOC: D.ER 14:49
DX: L73.1 Pseudofolliculitis barbae (principal)